=== PATIENT | female | born 1985 | race American Indian/Alaskan Native ===

== ENCOUNTER 2018-11-08 14:04 | Emergency (ER) | payer BC, OTHER ==
--- NOTE | 2018-11-08 14:10 | Event Note ---
ED Screening Note ED Screening Note: HEADACHE WITH VISION CHANGE LMP JULY DUE MAY 04 NO VAG BLEED OR DC OBGYN SEEN [address] HAMMOND REFERRED LOST COUNT OF NO OF PREG LOST LAST ONE FEW YEARS AGO AT 22 W INCOMP CERVIX BP 140/88 HR 75 This initial assessment/diagnostic orders/clinical plan/treatment(s) is/are subject to change based on patients health status, clinical progression and re- assessment by fellow clinical providers in the ED. Further treatment and workup at subsequent clinical providers discretion. Patient/guardian urged not to elope from the ED as their condition may be serious if not clinically assessed and managed. Initial orders include: UA LABS BP EVAL
[2018-11-08 15:34] LABS: Hematocrit 34.5 % (30.3-42.9); Hemoglobin 11.6 gm/dl (10.1-14.3); Mean Corpuscular HGB Conc 34 % (30-34); Mean Corpuscular Volume 94 fl (79-97); Platelet Count 237 K/mm3 (140-440); Red Blood Count 3.66 M/mm3 (3.65-5.03); Red Cell Distribution Width 13.5 % (13.2-15.2)
[2018-11-08 15:53] LABS: Alanine Aminotransferase 26 units/L (7-56); Albumin 3.6 g/dL (3.9-5); BUN/Creatinine Ratio 11; Blood Urea Nitrogen 8 mg/dL (7-17); Calcium 9.2 mg/dL (8.4-10.2); Hemolysis Index 7
[2018-11-08 15:54] LABS: Alanine Aminotransferase 27 units/L (7-56); Albumin 3.6 g/dL (3.9-5)
[2018-11-08 15:58] LABS: Bilirubin,Direct < 0.2 mg/dL (0-0.2)
[2018-11-08] MEDS ORDERED: NACL 0.9% 1000 ML 1,000 ML IV ONE (16:32)
[2018-11-08] MEDS ORDERED: TYLENOL PO ONE (16:32)
[2018-11-08] MEDS ORDERED: ZOFRAN IV ONE (16:32)
--- NOTE | 2018-11-08 16:39 | Emergency Department Report ---
ED Headache HPI - General Chief Complaint: Headache Stated Complaint: HEAD PAIN Time Seen by Provider: 11/08/18 14:10 Source: patient Exam Limitations: no limitations - History of Present Illness Initial Comments: 33-year-old female with a past medical history mitral valve prolapse and kidney stones presents to the hospital complains of headache and abdominal pain. She is currently 14 weeks and 5 days and has received care with [facility]. This is her seventh and she has no living children due to multiple miscarriages with last miscarrying at 22 weeks due to incompetent cervix. She last had an ED ultrasound 2 weeks ago when she presented with abdominal pain which confirmed IUP. She complains of left-sided parietal and intermittent bitemporal headache described as a burning pain are constant and severe today. He denies neck pain focal weakness, or focal numbness. Pain is currently 10/10 in intensity. Aggravated by light without alleviating factors. She did not take any pain medicine today. She replaced blurred vision while at her computer screen at work today. She is status post Lasix surgery in the past. He complains of nausea vomiting which has persisted throughout . She also complains of intermittent cramping lower abdominal pain without dysuria, vaginal bleeding, or fever. He denies history of hypertension, migraines, chronic headache symptoms. OBGYN: [facility] Allergies/Adverse Reactions: Allergies No Known Allergies Allergy (Unverified 12/15/15 13:55) Home Medications: Ambulatory Orders Amoxicillin [Amoxicillin TAB] 875 mg PO BID #10 tablet 12/17/15 Ondansetron [Zofran TAB] 4 mg PO Q8HR PRN #30 tablet 12/17/15 oxyCODONE /ACETAMINOPHEN [Percocet 5/325 mg] 1 tab PO Q8HR PRN #12 tablet 12/17/15 Acetaminophen [Acetaminophen TAB] 500 mg PO Q4HR PRN #30 tablet 11/08/18 ED Review of Systems ROS: Stated complaint: HEAD PAIN Other details as noted in HPI Comment: All other systems reviewed and negative ED Past Medical Hx - Past Medical History Previous Medical History?: Yes Hx Hypertension: No Hx Congestive Heart Failure: No Hx Diabetes: No Hx Liver Disease: No Hx Seizures: No Hx Kidney Stones: Yes Hx Asthma: No Hx COPD: No Additional medical history: mitral valve prolapse - Social History Smoking Status: Never Smoker Substance Use Type: None - Medications Home Medications: Home Medications Medication Instructions Recorded Confirmed Last Taken Type Amoxicillin [Amoxicillin TAB] 875 mg PO BID #10 tablet 12/17/15 Unknown Rx Ondansetron [Zofran TAB] 4 mg PO Q8HR PRN #30 tablet 12/17/15 Unknown Rx oxyCODONE /ACETAMINOPHEN [Percocet 1 tab PO Q8HR PRN #12 tablet 12/17/15 Unknown Rx 5/325 mg] Acetaminophen [Acetaminophen TAB] 500 mg PO Q4HR PRN #30 tablet 11/08/18 Unknown Rx ED Physical Exam - General Limitations: No Limitations - Other Other exam information: General: No limitations, patient is alert in no acute distress Head exam: Atraumatic, normocephalic Eyes exam: Normal appearance, pupils equal reactive to light, extraocular movements intact. Visual acuity right:20/30. Left: 20/40 ENT: Moist mucous membrane, normal oropharynx Neck exam: Normal inspection, full range of motion, no meningismus nontender Respiratory exam: Clear to auscultation bilateral, no wheezes, rales, crackles Cardiovascular: Normal rate and rhythm, normal heart sounds Abdomen: Soft, nondistended, mild suprapubic tenderness, with normal bowel sounds, no rebound, or guarding Extremity: Full range of motion normal inspection no deformity, no leg or ankle edema, no calf tenderness Back: Normal Inspection, full range of motion, no tenderness Neurologic: Alert, oriented x3, cranial nerves intact, no motor or sensory deficit, rjudom-xjfj-[id number] function intact Psychiatric: normal affect, normal mood Skin: Warm, dry, intact ED Course Vital Signs 11/08/18 11/08/18 11/08/18 15:31 15:38 15:42 Temperature 98.7 F 98.7 F Pulse Rate 74 74 Respiratory 25 H 25 H 25 H Rate Blood Pressure Blood Pressure 131/69 [Left] O2 Sat by Pulse 100 100 100 Oximetry 11/08/18 11/08/18 19:15 19:16 Temperature 98 F Pulse Rate 66 Respiratory 18 Rate Blood Pressure 127/67 Blood Pressure [Left] O2 Sat by Pulse 100 Oximetry ED Medical Decision Making - Lab Data Result diagrams: 11/08/18 15:02 11/08/18 15:02 - Radiology Data Radiology results: report reviewed CT HEAD WITHOUT CONTRAST INDICATION / CLINICAL INFORMATION: headache, . TECHNIQUE: All CT scans at this location are performed using CT dose reduction for ALARA by means of automated exposure control. COMPARISON: None available. FINDINGS: LIMITATIONS: Beam hardening artifact from an anterior ring located in the right pinna degrades image quality on several slices locations. HEMORRHAGE: No evidence of intracranial hemorrhage or extra-axial fluid collection. EXTRA-AXIAL SPACES: Cortical sulci, sylvian fissures and basilar cisterns have an unremarkable appearance. VENTRICULAR SYSTEM: The ventricular system is of normal size and configuration. CEREBRAL PARENCHYMA: No areas of abnormal brain parenchymal attenuation are i dentified. There is no indication of recent infarction. MIDLINE SHIFT OR HERNIATION: There is no mass effect. CEREBELLUM / BRAINSTEM: Brainstem and cerebellum have an unremarkable appearance. INTRACRANIAL VESSELS:No abnormalities are identified on this noncontrast head CT. ORBITS: visualized portions of the orbits have an unremarkable appearance. SOFT TISSUES of HEAD: No significant abnormality. CALVARIUM: Evaluation of bone windows reveals no abnormalities. PARANASAL SINUSES / MASTOID AIR CELLS: Inflammatory disease is present within several ethmoid air cells bilaterally. Frontal, sphenoid and visualized portions the maxillary sinuses are clear. There is no indication of mastoiditis or otitis media. IMPRESSION: 1. No intracranial abnormalities are identified on head CT without contrast. OB ultrasound FINDINGS: Cervix measures 4.9 cm and is closed. Single fetus is identified in breech presentation. Amniotic fluid volume appears adequate. Placenta is anterior and free of the os. heart rate is 173 bpm. Appropriate measurements reveal an MA of 14 weeks 5 days for an QUIQUE of 05/04/2019. This correlates with the clinical dates. Right ovary is normal. Left ovary contains a 1.6 cm cyst. There may be some minimal subchorionic hemorrhage. No significant abnormality. - Medical Decision Making CT head unremarkable. Ultrasound confirms a viable IUP. Patient has some improvement after treatment with normal saline, Zofran, and Tylenol. Will be discharged to follow-up with [facility] - Differential Diagnosis intracranial hemorrhage, headache NOS, dehydration, UTI Critical Care Time: No Critical care attestation.: If time is entered above; I have spent that time in minutes in the direct care of this critically ill patient, excluding procedure time. ED Disposition Clinical Impression: Headache, 14 weeks gestation of Disposition: DC- TO HOME OR SELFCARE Is pt being admited?: No Does the pt Need Aspirin: No Condition: Stable Instructions: Acute Headache (ED), (ED) Additional Instructions: Take the medication as prescribed. Follow up with your doctor or the clinic/doctor provided. Return if symptoms worsen as indicated by your disch arge instructions Prescriptions: Acetaminophen [Acetaminophen TAB] 500 mg PO Q4HR PRN #30 tablet PRN Reason: Pain , Severe (7-10) Referrals: [facility] [Provider Group] - 3-5 Days Forms: Work/School Release Form(ED) Time of Disposition: 21:43
[2018-11-08 17:08] LABS: Bilirubin,Urine NEG (Negative); Blood,Urine NEG (Negative); Color,Urine Straw (Yellow); Mucus,Urine FEW /HPF; Protein,Urine <15 mg/dL mg/dL (Negative); Urobilinogen,Urine < 2.0 mg/dL (<2.0)
--- NOTE | 2018-11-08 18:43 | Cat Scan Report ---
CT HEAD WITHOUT CONTRAST INDICATION / CLINICAL INFORMATION: headache, . TECHNIQUE: All CT scans at this location are performed using CT dose reduction for ALARA by means of automated e xposure control. COMPARISON: None available. FINDINGS: LIMITATIONS: Beam hardening artifact from an anterior ring located in the right pinna degrades image quality on several slices locations. HEMORRHAGE: No evidence of intracranial hemorrhage or extra-axial fluid collection. EXTRA-AXIAL SPACES: Cortical sulci, sylvian fissures and basilar cisterns have an unremarkable appear ance. VENTRICULAR SYSTEM: The ventricular system is of normal size and configuration. CEREBRAL PARENCHYMA: No areas of abnormal brain parenchymal attenuation are identified. There is no i ndication of recent infarction. MIDLINE SHIFT OR HERNIATION: There is no mass effect. CEREBELLUM / BRAINSTEM: Brainstem and cerebellum have an unremarkable appearance. INTRACRANIAL VESSELS:No abnormalities are identified on this noncontrast head CT. ORBITS: visualized portions of the orbits have an unremarkable appearance. SOFT TISSUES of HEAD: No significant abnormality. CALVARIUM: Evaluation of bone windows reveals no abnormalities. PARANASAL SINUSES / MASTOID AIR CELLS: Inflammatory disease is present within several ethmoid air ziyad ls bilaterally. Frontal, sphenoid and visualized portions the maxillary sinuses are clear. There is n o indication of mastoiditis or otitis media. IMPRESSION: 1. No intracranial abnormalities are identified on head CT without contrast. Signer Name: Ernie Samuel MD Signed: 11/08/2018 6:38 PM Workstation Name: [id number]
--- NOTE | 2018-11-08 19:26 | Ultrasound Report ---
See previous report Signer Name: Lats Lawson MD Signed: 11/08/2018 7:22 PM Workstation Name: [id number]
--- NOTE | 2018-11-08 19:26 | Ultrasound Report ---
OB ultrasound FINDINGS: Cervix measures 4.9 cm and is closed. Single fetus is identified in breech presentation. Am niotic fluid volume appears adequate. Placenta is anterior and free of the os. heart rate is 17 3 bpm. Appropriate measurements reveal an MA of 14 weeks 5 days for an QUIQUE of 05/04/2019. This correlat es with the clinical dates. Right ovary is normal. Left ovary contains a 1.6 cm cyst. There may be so me minimal subchorionic hemorrhage. No significant abnormality. Signer Name: Last Lawson MD Signed: 11/08/2018 7:21 PM Workstation Name: [id number]
[2018-11-08 21:52] VITALS: BP 117/66
== END 2018-11-08 22:00 | disposition home or self-care (01) ==
LOC: ED 14:04
DX: O26.892 Other specified pregnancy related conditions, second trimester (principal); O21.0 Mild hyperemesis gravidarum; R51 Headache; Z87.442 Personal history of urinary calculi; Z3A.14 14 weeks gestation of pregnancy
CPT/HCPCS: 36415; 70460; 76805; 76817; 80053; 80076; 81001; 85027; 96361; 96374; 99285; J2405; J7030

== ENCOUNTER 2019-03-02 10:03 | Outpatient (CLI) | payer BC, OTHER ==
[2019-03-02 10:23] VITALS: BP 127/80
[2019-03-02] MEDS ORDERED: LACTATED RINGERS 1,000 ML ONE (11:09)
[2019-03-02] MEDS ORDERED: LACTATED RINGERS 500 ML IV ONE (11:32)
[2019-03-02] MEDS ORDERED: LACTATED RINGERS 1,000 ML IV SCH (12:00)
[2019-03-02 12:02] LABS: Bilirubin,Urine NEG (Negative); Blood,Urine NEG (Negative); Color,Urine Yellow (Yellow); Mucus,Urine FEW /HPF; Protein,Urine <15 mg/dL mg/dL (Negative); Urobilinogen,Urine < 2.0 mg/dL (<2.0)
[2019-03-02 12:13] LABS: Basophils % (Auto) 0.4 % (0.0-1.8); Eosinophils # (Auto) 0.2 K/mm3 (0.0-0.4); Eosinophils % (Auto) 2.1 % (0.0-4.3); Hematocrit 33.7 % (30.3-42.9); Hemoglobin 11.5 gm/dl (10.1-14.3); Lymphocytes # (Auto) 1.8 K/mm3 (1.2-5.4); Lymphocytes % (Auto) 19.9 % (13.4-35.0); Mean Corpuscular HGB Conc 34 % (30-34); Mean Corpuscular Volume 93 fl (79-97); Monocytes # (Auto) 0.9 K/mm3 (0.0-0.8); Monocytes % (Auto) 9.4 % (0.0-7.3); Platelet Count 197 K/mm3 (140-440); Red Blood Count 3.64 M/mm3 (3.65-5.03); Red Cell Distribution Width 13.4 % (13.2-15.2)
[2019-03-02] MEDS: NIFEdipine*For Tocolysis only* 10 MG CAPSULE PO SCH ×2 (12:14→14:38)
[2019-03-02] MEDS ORDERED: NIFEdipine*For Tocolysis only* 10 MG CAPSULE PO ONE (12:37)
== END 2019-03-02 15:45 | disposition home or self-care (01) ==
LOC: TRG 10:03
PROVIDERS: ATTEND Obstetrics & Gynecology
DX: O62.9 Abnormality of forces of labor, unspecified (principal); Z3A.31 31 weeks gestation of pregnancy
CPT/HCPCS: 36415; 59025; 81001; 85025; 96360; J7120

== ENCOUNTER 2019-04-14 11:07 | Inpatient (IN) | payer OTHER ==
[2019-04-14] MEDS ORDERED: LACTATED RINGERS 1,000 ML IV SCH (15:00)
[2019-04-14 15:44] LABS: Basophils # (Auto) 0.1 K/mm3 (0.0-0.1); Basophils % (Auto) 0.6 % (0.0-1.8); Eosinophils # (Auto) 0.1 K/mm3 (0.0-0.4); Eosinophils % (Auto) 1.7 % (0.0-4.3); Hematocrit 32.9 % (30.3-42.9); Hemoglobin 11.2 gm/dl (10.1-14.3); Lymphocytes # (Auto) 2.3 K/mm3 (1.2-5.4); Lymphocytes % (Auto) 25.4 % (13.4-35.0); Mean Corpuscular HGB Conc 34 % (30-34); Mean Corpuscular Volume 92 fl (79-97); Monocytes # (Auto) 0.8 K/mm3 (0.0-0.8); Monocytes % (Auto) 8.5 % (0.0-7.3); Platelet Count 236 K/mm3 (140-440); Red Blood Count 3.57 M/mm3 (3.65-5.03); Red Cell Distribution Width 13.4 % (13.2-15.2)
[2019-04-14 16:06] LABS: Alanine Aminotransferase 17 units/L (7-56); Uric Acid 4.6 mg/dL (3.5-7.6)
[2019-04-14 16:41] LABS: Bilirubin,Urine NEG (Negative); Blood,Urine NEG (Negative); Color,Urine Yellow (Yellow); Mucus,Urine FEW /HPF; Protein,Urine <15 mg/dL mg/dL (Negative); RBC,Urine < 1.0 /HPF (0.0-6.0); Urobilinogen,Urine < 2.0 mg/dL (<2.0); WBC,Urine < 1.0 /HPF (0.0-6.0)
[2019-04-14] MEDS ORDERED: MINERAL OIL 30 ML ORAL LIQD PO PRN (18:52)
[2019-04-14] MEDS ORDERED: LIDOCAINE (2%) 20 MG/1 ML VIAL 20 ML MDV INFILTRATI ONE ×2 (18:52→23:14)
[2019-04-14] MEDS ORDERED: fentaNYL 100 MCG/2 ML INJ IV PRN (18:52)
[2019-04-14] MEDS ORDERED: NALOXONE 0.4 MG/1 ML INJ IV PRN (18:52)
[2019-04-14] MEDS ORDERED: TERBUTALINE 1 MG/1 ML INJ IVP PRN (18:52)
[2019-04-14] MEDS ORDERED: TERBUTALINE 1 MG/1 ML INJ SUB-Q PRN (18:52)
[2019-04-14] MEDS ORDERED: ePHEDrine SULFATE 50 MG/1 ML INJ IV PRN ×2 (18:52→22:28)
[2019-04-14] MEDS ORDERED: PROMETHAZINE 25 MG TAB PO PRN (18:52)
[2019-04-14] MEDS ORDERED: ONDANSETRON 4 MG/2 ML INJ IV PRN (18:52)
[2019-04-14] MEDS ORDERED: OXYTOCIN DRIP 30 UNITS/500 ML BAG IV SCH (19:00)
--- NOTE | 2019-04-14 19:25 | History and Physical Report ---
History of Present Illness Date of examination: 04/14/19 (182) Date of admission: 04/14/19 11:07 Chief complaint: Here for IOL per [facility] History of present illness: 33 yo AA Fe , QUIQUE 05/04/2019 (US), 37 weeks 1 day presents for IOL per [facility] recommendation. Pt initiated early care with [facility] at 12w1d. Co-managed with [facility] (Morbid obesity, recurrent loss, Hx:Midterm loss, incompetent cervix: Cerclage placed 01/11/19, Removed 04/06/19, Progesterone suppository, Jessica, Procardia). MVP, Vitamin D deficiency (D3 supplementation), 1 Kidney, and HSV (Valtrex supression). Labs: O positive, Rubella Immune, VDRL non-reactive, HBsAg Negative, HIV Negative, GC negative, CHL Negative, Trich Negative, GBS Negative, Past History Past Medical History: hypertension (CHTN; no current meds), kidney stones (Stent placed), other (One kidney at ) Past Surgical History: cholecystectomy, other (Colposcopy, Endoscopy) [employer] [facility] History: abnormal PAP smear (Hx with colposcopy. 11/01/18 Last PAP NIL), herpes (Known Hx. On valtrex). denies: chlamydia, gonorrhea, hepatitis B, hepatitis C, HIV, syphilis, trichomonas Family/Genetic History: none (Denies) Social history: no significant social history, , lives with family, full code. denies: smoking, alcohol abuse, prescription drug abuse, IV drug use - Obstetrical History : 7 Medications and Allergies Allergies Allergy/AdvReac Type Severity Reaction Status Date / Time No Known Allergies Allergy Verified 03/02/19 11:28 Home Medications Medication Instructions Recorded Confirmed Last Taken Type No Known Home Medications [No 01/13/19 01/13/19 Unknown History Reported Home Medications] Active Meds: Active Medications Lactated Ringer's (Lactated Ringers) 1,000 mls @ 125 mls/hr IV DIRECT ARLETH Review of Systems Eyes: normal appearance Cardiovascular: no chest pain, no shortness of breath Respiratory: no shortness of breath Breasts: normal Gastrointestinal: no abdominal pain, no nausea, no vomiting, no diarrhea, no constipation Genitourinary: normal appearance, no vaginal bleeding, no vaginal discharge, no leakage of fluid, no dysuria, no pelvic pain, no genital sores, no contractions Integumentary: no rash, no sores, no lesions - Vital Signs Vital signs: Vital Signs Pulse BP 84 138/88 04/14/19 13:34 04/14/19 13:34 Temp Pulse Resp BP Pulse Ox 98.4 F 89 18 154/79 100 04/14/19 14:11 04/14/19 18:51 04/14/19 14:11 04/14/19 18:36 04/14/19 18:51 - Physical Exam Breasts: Positive: normal Cardiovascular: Regular rate, Normal S1, Normal S2, No murmurs Lungs: Positive: Clear to auscultation, Normal air movement Abdomen: Positive: normal appearance, soft, normal bowel sounds. Negative: distention Genitourinary (Female): Positive: normal external genitalia, normal perenium Vulva: both: normal Vagina: Positive: normal moisture Uterus: Positive: enlarged (Gravid) Anus/Rectum: Positive: normal perianal skin Extremities: Positive: normal Deep Tendon Reflex Grade: Normal +2 - Obstetrical FHR: category 1 Uterine Contraction Monitor Mode: External Cervical Dilatation: 4 (AROM, Lg amt clear fluid @1840) Cervical Effacement Percentage: 90 station: 0 Uterine Contraction Pattern: Irregular Uterine Tone Measurement Phase: Resting Uterine Contraction Intensity: Mild Results Result Diagrams: 04/14/19 15:27 04/14/19 15:27 Abnormal lab results 04/14/19 04/14/19 Range/Units 15:27 15:27 RBC 3.57 L (3.65-5.03) M/mm3 [place] % (Auto) 8.5 H (0.0-7.3) % Creatinine 0.6 L (0.7-1.2) mg/dL Lactate Dehydrogenase 193 H (91-180) units/L All other labs normal. Assessment and Plan A: IUP @ 37w1d Maternal Obesity HSV2; Valtrex supression CHTN; no current meds; PIH labs WML Category 1 tracing GBS Negative AROM 04/14/19 @1840 P: Admit to L&D, Routine labor orders Pitocin IOL Anticipate Planning Cord blood collection with [facility] (pt presents collection kit on admission)
[2019-04-14] MEDS: LACTATED RINGERS 1,000 ML IV SCH ×2 (20:36→22:24)
[2019-04-14] MEDS ORDERED: hydrALAZINE 20 MG/1 ML INJ IV PRN (21:16)
[2019-04-14] MEDS ORDERED: DEXMEDETOMIDINE 200 MCG/2 ML VIAL IV ONE (22:00)
[2019-04-14] MEDS ORDERED: NALOXONE 2 MG/2 ML INJ IV PRN (22:28)
--- NOTE | 2019-04-14 22:30 | Anesthesia Consultation ---
Anesthesia Consult and Med Hx Date of service: 04/14/19 - Airway Anesthetic Teeth Evaluation: Good ROM Head & Neck: Adequate Mental/Hyoid Distance: Adequate Mallampati Class: Class II Intubation Access Assessment: Good - Pulmonary Exam CTA: Yes - Cardiac Exam Cardiac Exam: RRR - Pre-Operative Health Status ASA Pre-Surgery Classification: ASA2 Proposed Anesthetic Plan: Epidural, Spinal - Pulmonary Hx Smoking: Yes (marijuana daily) Hx Asthma: No COPD: No Hx Pneumonia: No Hx Sleep Apnea: No - Cardiovascular System Hx Hypertension: Yes Hx Valvular Heart Disease: Yes (mitral valve prolapse) - Central Nervous System Hx Seizures: No CVA: No Hx Psychiatric Problems: No - Endocrine Hx Renal Disease: No Hx End Stage Renal Disease: No Hx Cirrhosis: No Hx Liver Disease: No Hx Hypothyroidism: No Hx Hyperthyroidism: No (Elevated TSH) - Hematic Hx Anemia: Yes Hx Sickle Cell Disease: No - Other Systems Hx Alcohol Use: No Hx Substance Use: Yes (marijuana daily)
[2019-04-14] MEDS ORDERED: FAMOTIDINE 20 MG/2 ML INJ IV ONE ×2 (22:48→23:24)
[2019-04-14] MEDS ORDERED: fentaNYL-BUPIV 2 MCG/ML-0.125% 200 MCG/100 ML BAG EPIDURAL SCH (23:00)
[2019-04-14] MEDS: OXYTOCIN 20 UNIT/1000ML DRIP 20 UNITS/1,000 ML BAG IV SCH (23:44)
[2019-04-15] MEDS ORDERED: diphenhydrAMINE 25 MG CAP PO PRN (00:56)
[2019-04-15] MEDS ORDERED: LANOLIN/ZINC/DIMETHICONE (LANSINOH) 7 GM TP PRN (00:56)
[2019-04-15] MEDS ORDERED: ACETAMINOPHEN 325 MG TAB PO PRN (00:56)
[2019-04-15] MEDS ORDERED: MAGNESIUM HYDROXIDE (MOM) ORAL LIQD UDC PO PRN (00:56)
[2019-04-15] MEDS ORDERED: PROMETHAZINE 25 MG TAB PO PRN (00:56)
[2019-04-15] MEDS ORDERED: ONDANSETRON 4 MG/2 ML INJ IV PRN (00:56)
[2019-04-15] MEDS ORDERED: WITCH HAZEL/ GLYCERIN PAD TP PRN (00:56)
--- NOTE | 2019-04-15 01:06 | Procedure Note ---
OB Delivery Note - Delivery Date of Delivery: 04/14/19 (6178) Surgeon: BARRINGTON KABA (NARCISO) Estimated blood loss: 200cc - Vaginal Delivery presentation: vertex Delivery position: OA Intrapartum events: none Delivery induction: AROM Delivery augmentation: pitocin Delivery monitor: external FHT, external uterine Route of delivery: (23:42) Delivery placenta: spontaneous, other (Velamentous Cord insertion) Delivery cord: 3 umbilical vessels Delivery laceration: 1st degree Delivery repair: vicryl (2-0 CT) Anesthesia: epidural Delivery comments: viable male GEORGE position at 23:42. Vigorous infant placed on mothers abdomen. Cord clamped then cut at 1 min of age by friend of pt with my guidance. Cord blood collected for stem cell collection with kit pt provided for collection. Cord blood collected per hospital protocol. FF@U-1. Spontaneous tamez delivery of intact placenta at 23:50. Cord to pathology for velamentous cord insertion. Small first degree perineal laceration repaired using 2-0 vicryl under epidural anesthesia Pt tolerated well. EBL 200ml. and mother left in stable condition in L&D. GBS Negative. Cord blood kit completed and given to [facility] ready for transport with instructions to call [facility]. - Infant A at 1 minute: 8 at 5 minutes: 9 Infant Gender: Male (6lbs 3oz, 2792 grams, 20")
[2019-04-15] MEDS: OXYTOCIN 20 UNIT/1000ML DRIP 20 UNITS/1,000 ML BAG IV SCH (01:45)
[2019-04-15] MEDS: HYDROcodone/ACETAMINOPHEN 5-325 MG TAB PO PRN ×3 (04:51→17:41)
[2019-04-15] MEDS: IBUPROFEN 600 MG TAB PO SCH ×3 (09:50→23:57)
--- NOTE | 2019-04-15 10:14 | Post Anesthesia Evaluation ---
- Post Anesthesia Evaluation Patient Participated: Yes Airway Patent: Yes Stable Respiratory Function: Yes Nausea/Vomiting: No Temp > 96.8F: Yes Pain Manageable: Yes Adequeate Hydration: Yes Anesthesia Complications: No Block Receding Appropriately: Yes Patient on Ventilator: No
[2019-04-15 14:44] LABS: Hematocrit 27.8 % (30.3-42.9); Hemoglobin 9.2 gm/dl (10.1-14.3)
[2019-04-16] MEDS: HYDROcodone/ACETAMINOPHEN 5-325 MG TAB PO PRN (09:13)
--- NOTE | 2019-04-16 10:34 | Progress Note ---
Assessment and Plan A: day 1 S/P . Anemia secondary to and blood loss. Mildly elevated BPs. P: Repeat labs. Repeat BPs. Iron supplementation. Subjective - Subjective Date of service: 04/16/19 Principal diagnosis: day 1 S/P Interval history: day 1 S/P . History of elevated blood pressures prior to delivery. Patient is voiding without difficulty, ambulating well, tolerating a regular diet. Moderate to small amount of lochia. Patient denies headache, chest pain, dizziness, shortness of breath, visual disturbance, N/V, abdominal pain, leg pain, or heavy bleeding. Patient reports mild afterbirth cramping. She is . Patient reports: appetite normal, voiding normally, pain well controlled, flatus, ambulating normally, no dizzy ambulation, no nauseated Stout: doing well Objective - Vital Signs Latest vital signs: Vital Signs Temp Pulse Resp BP Pulse Ox 04/16/19 08:15 98 F 86 20 142/80 04/16/19 01:39 98.4 F 83 20 134/76 97 04/15/19 16:56 97.7 F 91 H 20 131/71 04/15/19 13:05 97.8 F 19 L 20 129/78 Intake and Output 04/15/19 04/16/19 04/16/19 23:59 07:59 15:59 Intake Total 360 360 240 Output Total 800 Balance -440 360 240 Intake: Oral 120 240 Intake, Free Water 240 360 Output: Urine 800 Void 800 Other: Total, Intake Amount 120 240 Total, Output Amount 800 # Voids Void 1 2 1 - Exam Cardiovascular: Present: Regular rate, Normal S1, Normal S2, No murmurs Lungs: Present: Clear to auscultation Abdomen: Present: normal appearance, soft, normal bowel sounds. Absent: distention, tenderness, guarding, rigidity Uterus: Present: normal, firm, fundal height below umbilicus. Absent: aggie gginess, tenderness Extremities: Present: normal. Absent: tenderness, edema - Labs Labs: Abnormal lab results 04/15/19 Range/Units 14:14 Hgb 9.2 L (10.1-14.3) gm/dl Hct 27.8 L (30.3-42.9) %
[2019-04-16] MEDS ORDERED: FERROUS SULFATE 325 MG TAB PO SCH (11:00)
[2019-04-16 11:56] LABS: Alanine Aminotransferase 15 units/L (7-56); Albumin 2.8 g/dL (3.9-5); BUN/Creatinine Ratio 8; Blood Urea Nitrogen 5 mg/dL (7-17); Calcium 8.5 mg/dL (8.4-10.2); Hemolysis Index 11
[2019-04-16] MEDS: IBUPROFEN 600 MG TAB PO SCH (12:00)
[2019-04-16] MEDS ORDERED: BENZOCAINE/MENTHOL 20/0.5% TOP SPRAY 56 GM TP PRN (12:21)
--- NOTE | 2019-04-16 15:56 | Discharge Summary ---
Providers - Providers Date of Admission: 04/14/19 11:07 Date of discharge: 04/16/19 Attending physician: DEBBIE MORALES MD None Primary care physician: DEBBIE MORALES MD Hospitalization Reason for admission: induction of labor Delivery: Episiotomy: none Laceration: 1st degree Other procedures: none complications: none Discharge diagnosis: IUP at term delivered [place] baby: male Pertinent studies: Labs Hospital course: Normal hospital course Condition at discharge: Good Disposition: DC-01 TO HOME OR SELFCARE - Discharge Diagnoses (1) Term delivered Status: Acute Plan - Provider Discharge Summary Activity: routine, no sex for 6 weeks, no heavy lifting 4 weeks, no strenuous exercise Diet: routine Instructions: routine Additional instructions: Continue taking your vitamins and iron. Call your doctor immediately for: * Fever > 100.5 * Heavy vaginal bleeding ( >1 pad per hour) * Severe persistent headache * Shortness of breath * Reddened, hot, painful area to leg or breast - Follow up plan Follow up: DEBBIE MORALES MD [Primary Care Provider] - 04/17/19 Forms: [facility] Discharge Summary, Discharge Signature Page
[2019-04-16 17:18] VITALS: BP 123/73
== END 2019-04-16 17:10 | disposition home or self-care (01) | DRG 774 ==
LOC: LD 11:07 → OB 04-15 04:03
PROVIDERS: ADMIT Obstetrics & Gynecology; ATTEND Obstetrics & Gynecology
PROC: 10E0XZZ Delivery of Products of Conception, External Approach (ICD-10-PCS; principal; 2019-04-14)
PROC: 0HQ9XZZ Repair Perineum Skin, External Approach (ICD-10-PCS; 2019-04-14)
PROC: 10907ZC Drainage of Amniotic Fluid, Therapeutic from Products of Conception, Via Natural or Artificial Opening (ICD-10-PCS; 2019-04-14)
PROC: 3E0R3BZ Introduction of Anesthetic Agent into Spinal Canal, Percutaneous Approach (ICD-10-PCS; 2019-04-14)
PROC: 00HU33Z Insertion of Infusion Device into Spinal Canal, Percutaneous Approach (ICD-10-PCS; 2019-04-14)
DX: O10.92 Unspecified pre-existing hypertension complicating childbirth (principal); O99.02 Anemia complicating childbirth; O99.324 Drug use complicating childbirth; F12.90 Cannabis use, unspecified, uncomplicated; O98.52 Other viral diseases complicating childbirth; B00.9 Herpesviral infection, unspecified; O99.214 Obesity complicating childbirth; E66.01 Morbid (severe) obesity due to excess calories; O70.0 First degree perineal laceration during delivery; Z37.0 Single live birth; Z3A.37 37 weeks gestation of pregnancy; Z87.442 Personal history of urinary calculi; Z90.49 Acquired absence of other specified parts of digestive tract
CPT/HCPCS: 36415; 80053; 81001; 82565; 83615; 84450; 84460; 84550; 85014; 85018; 85025; 85027; 85049; 86850; 86900; 86901; 88307; G0378; A6250; J2590; J3010; J3490; J7120

== ENCOUNTER 2020-04-21 17:29 | Emergency (ER) | payer OTHER ==
[2020-04-21 17:44] VITALS: BP 150/100
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
== END 2020-04-21 20:04 | disposition home or self-care (01) ==
LOC: ED 17:29
DX: M54.2 Cervicalgia (principal); R51.9 Headache, unspecified; I10 Essential (primary) hypertension; V49.49XA Driver injured in collision with other motor vehicles in traffic accident, initial encounter; Y93.89 Activity, other specified; Y92.410 Unspecified street and highway as the place of occurrence of the external cause; Y99.8 Other external cause status
CPT/HCPCS: 99281